=== PATIENT | male | born 1995 ===

== ENCOUNTER 2017-05-25 02:19 | Emergency (ER) | payer SELFPAY ==
[2017-05-25] MEDS ORDERED: Ondansetron HCl/PF 4 MG/2 ML Vial ONE (02:29)
[2017-05-25] MEDS ORDERED: Lidocaine 1% w/Epinephrine 1:100K 20 ML VIAL ONE (03:16)
[2017-05-25] MEDS ORDERED: Adacel (T-DAP) 0.5 ML VIAL ONE (03:16)
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
== END 2017-05-25 05:03 | disposition home or self-care (01) ==
LOC: ERS 02:19
DX: S01.112A Laceration without foreign body of left eyelid and periocular area, initial encounter (principal); F10.129 Alcohol abuse with intoxication, unspecified; W19.XXXA Unspecified fall, initial encounter
CPT/HCPCS: 12011; 70450; 90471; 90715; 96374; J2001; J2405